=== PATIENT | male | born 1980 | race Caucasian/White ===

== ENCOUNTER 2024-05-09 10:52 | Emergency (ER) | payer BC, SELFPAY ==
--- NOTE | 2024-05-09 10:51 | ECG_ITS ---
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 Measurements Intervals [place] Rate: 90 P: 39 MA: 140 QRS: 22 QRSD: 92 T: 37 QT: 367 QTc: 449 Interpretive Statements SINUS RHYTHM No previous ECG available for comparison Electronically Signed On 05-09-2024 12:01:00 CDT by Guillermo Zayas M.D. [id number]
--- NOTE | 2024-05-09 11:12 | XR_ITS ---
WS: [id number] Portable AP upright chest, 05/09/2024 Clinical Data: chest pain Comparison: None. Findings: No nodules, masses or effusions are seen. The heart is normal. The pulmonary vascularity is not increased. No pneumonia or pneumothorax is seen. There are monitor leads on the chest wall. XR/XR chest 1V portable [id number] Impression: Negative chest.
[2024-05-09 11:13] VITALS: BP 171/99; PULSE 82; RESP 16; TEMP 36.7; O2SAT 97; BMI 32.1
[2024-05-09 11:22] LABS: Basophils % 0.6 %; Eosinophils # 0.1 10^3/uL (0.0-0.8); Eosinophils % 1.5 %; Hematocrit 44.7 % (37-53); Lymphocytes # 2.8 10^3/uL (0.8-4.8); Lymphocytes % 42.3 %; Mean Corpuscular Hemoglobin 30.8 pg (27-33); Mean Corpuscular Volume 90.5 fl (82-101); Mean Platelet Volume 8.9 fL (7.4-10.4); Monocytes # 0.9 10^3/uL (0.2-0.9); Monocytes % 13.3 %; Nucleated Red Blood Cells % 0 %; Platelet Count 269 10^3/cmm (157-399); Red Blood Count 4.94 10^6/uL (3.85-5.65); Red Cell Distribution Width 12.5 % (12.1-15.1); White Blood Count 6.67 10^3/uL (3.29-11.43)
--- NOTE | 2024-05-09 11:28 | ED_ITS ---
HPI - Chest Pain 2 General: Chief Complaint: Chest Pain Stated Complaint: Chest pain, SOB Time Seen by Provider: 05/09/24 11:12 History of Present Illness: 43-year-old male presents emergency room complaint intermittent chest pain began this morning when he first woke up. He has not noticed anything exacerbates or relieves it he has no history of coronary artery disease no history of arrhythmias. No associated shortness of breath or productive cough no fever sweats or chills. He can wax and wane this morning he did not really notice anything that exacerbated or relieved. He is not having any chest discomfort at this time. Pain is not reproducible with deep inspiration or palpation. Associated symptoms: Deny abdominal pain, dyspnea or fever(s) Review of Systems 2 Const: Denies: fever(s) or chills Card: Reports: chest pain Resp: Denies: dyspnea GI: Denies: abdominal pain : Denies: dysuria, urinary frequency or urinary urgency Musc: Denies: neck pain or back pain Skin/Breast: Denies: rash Physical Exam 2 Const: GENERAL APPEARANCE: cooperative and comfortable O RIENTATION/CONSCIOUSNESS: Yes awake, Yes oriented to person, Yes oriented to place and Yes oriented to time HENMT: COMMON NORMALS: normocephalic, atraumatic and hearing grossly normal bilaterally HEAD & SCALP: normocephalic and atraumatic Resp: COMMON NORMALS: normal respiratory effort, No retractions, No use of accessory muscles and clear to auscultation bilaterally AUSCULTATION: clear to auscultation bilaterally Cardio: COMMON NORMALS: regular rate, regular rhythm and No murmurs present (Cardio) RATE: regular rate RHYTHM: regular rhythm GI: COMMON NORMALS: Soft to palpation and No hepatosplenomegaly present A USCULTATION: Yes normoactive bowel sounds PALPATION: Yes Soft to palpation, No Tenderness to palpation present (GI), No Guarding due to palpation present (GI) and Yes No hepatosplenomegaly present Extremity: COMMON NORMALS: normal to inspection, capillary refill normal, no clubbing, cyanosis or edema, no calf tenderness and no pedal edema Neuro: SENSORIUM/ORIENTATION: Yes oriented to person, Yes oriented to place and Yes oriented to time Skin: COMMON NORMALS: no rashes or lesions noted GENERAL SKIN EXAM: no rashes or lesions noted Course 2 Vital Signs: Vital signs: Vital Signs Temperature 98.0 F 05/09/24 11:13 Pulse Rate 83 05/09/24 13:19 Respiratory Rate 16 05/09/24 11:47 Blood Pressure 142/92 05/09/24 13:19 Pulse Oximetry 98 05/09/24 13:19 Oxygen Delivery Me thod Room Air 05/09/24 13:19 MDM - Chest Pain Medical Decision Making First EKG shows normal sinus rhythm with a normal rate no acute ST changes second EKG shows a rate of 72 with a normal [place] interval no acute ST changes. Cardiac enzymes are negative. Will discharge patient home set him up for outpatient graded exercise stress test encourage patient take aspirin daily continue his other medications. Lab Data 05/09/24 11:06 05/09/24 11:06 Radiology Impressions Chest X-Ray 05/09/24 11:12 Impression: Negative chest. Laboratory Results WBC 6.67 10^3/uL (3.29-11.43) 05/09/24 11:06 RBC 4.94 10^6/uL (3.85-5.65) 05/09/24 11:06 Hgb 15.20 g/dL (11.27-16.99) 05/09/24 11:06 Hct 44.7 % (37-53) 05/09/24 11:06 MCV 90.5 fl (82-101) 05/09/24 11:06 MCH 30.8 pg (27-33) 05/09/24 11:06 MCHC 34.0 g/dL (30-55) 05/09/24 11:06 RDW 12.5 % (12.1-15.1) 05/09/24 11:06 Plt Count 269 10^3/cmm (157-399) 05/09/24 11:06 MPV 8.9 fL (7.4-10.4) 05/09/24 11:06 Neut % (Auto) 42.0 % 05/09/24 11:06 Lymph % (Auto) 42.3 % 05/09/24 11:06 [place] % (Auto) 13.3 % 05/09/24 11:06 Eos % (Auto) 1.5 % 05/09/24 11:06 Baso % (Auto) 0.6 % 05/09/24 11:06 Neut # (Auto) 2.80 10^3/uL (1.8-7.7) 05/09/24 11:06 Lymph # (Auto) 2.8 10^3/uL (0.8-4.8) 05/09/24 11:06 [place] # (Auto) 0.9 10^3/uL (0.2-0.9) 05/09/24 11:06 Eos # (Auto) 0.1 10^3/uL (0.0-0.8) 05/09/24 11:06 Baso # (Auto) 0.0 10^3/uL (0.0-0.1) 05/09/24 11:06 Nucleated RBC % (auto) 0 % 05/09/24 11:06 Nucleated RBCs # 0.0 /100WBC 05/09/24 11:06 Sodium 141 mmol/L (136-145) 05/09/24 11:06 Potassium 4.1 mmol/L (3.5-5.1) 05/09/24 11:06 Chloride 102 mmol/L (98-107) 05/09/24 11:06 Carbon Dioxide 25 mmol/L (22-29) 05/09/24 11:06 Anion Gap 18.1 (5-19) 05/09/24 11:06 BUN 13 mg/dL (6-20) 05/09/24 11:06 Creatinine 0.8 mg/dL (0.7-1.2) 05/09/24 11:06 GFR Calculation 104.5 mL/min (90-130) 05/09/24 11:06 Glucose 111 mg/dL (65-115) 05/09/24 11:06 Calculated Osmolality 293 mOsm/kg (285-295) 05/09/24 11:06 Calcium 9.5 mg/dL (8.5-10.5) 05/09/24 11:06 Total Bilirubin 0.4 mg/dL (0.15-1.2) 05/09/24 11:06 AST 25 U/L (0-40) 05/09/24 11:06 ALT 41 U/L (0-41) 05/09/24 11:06 Alkaline Phosphatase 86 U/L (40-130) 05/09/24 11:06 Troponin T Baseline < 6 ng/L (0-15) 05/09/24 11:06 Troponin T 120 Minute 6.00 ng/L (0-15) 05/09/24 12:39 Delta Troponin T 0.03116 ABS# (0-10) 05/09/24 12:39 Total Protein 7.5 g/dL (6.6-8.7) 05/09/24 11:06 Albumin 5.0 g/dL (3.5-5.2) 05/09/24 11:06 Globulin 2.5 g/dL (1.3-4.6) 05/09/24 11:06 Lipase 16 U/L (13-60) 05/09/24 11:06 All radiology interpretation(s) finalized by discharge Discharge Plan Discharge Patient Disposition: Home Clinical Impression: Atypical chest pain Condition: Stable Prescriptions: New pantoprazole 40 mg tablet,delayed release (DR/EC) 40 mg PO QAM Qty: 30 0RF No Action lisinopril 20 mg tablet 20 mg PO DAILY Discharge Orders: Discharge ED (Routine); Ordered 05/09/24 Ordered By: Gonzalo Paez Referrals: Bryson Cho MD [Family Provider] - Discharge Diet: Usual diet Discharge Activity: Resume usual activity Patient Instructions: Opioid Safety, Pain Management Activity Restrictions/Additional Instructions: Thank you for choosing [facility] for your healthcare needs today. It is very important that you follow up as instructed or that you return to the Emergency Department should you have concerns or if your condition changes or worsens in any way. You were seen in the emergency room with complaint of chest discomfort. Your cardiac enzymes and EKGs were normal there is no evidence of acute coronary syndrome. Your chest x-ray did not show any signs of pneumonia pneumothorax widening the mediastinum (potential aortic dissection). Your oxygen sats and heart rate were normal there is no sign of pulmonary embolism. We recommend that you start Protonix 40 mg once daily we will set you up for an outpatient cardiac stress test. Follow-up with your primary care doctor Coding Level of Care Code ED Special Education Teacher for Kirsty Herman
[2024-05-09 11:41] LABS: Alanine Aminotransferase 41 U/L (0-41); Alkaline Phosphatase 86 U/L (40-130); Anion Gap 18.1 (5-19); Aspartate Amino Transferase 25 U/L (0-40); Blood Urea Nitrogen 13 mg/dL (6-20); Calcium 9.5 mg/dL (8.5-10.5); Carbon Dioxide 25 mmol/L (22-29); Chloride 102 mmol/L (98-107); Creatinine Clr Calc Pharmacy 143.3418; Globulin 2.5 g/dL (1.3-4.6); Glomerular Filtration Rate 104.5 mL/min (90-130); Glucose 111 mg/dL (65-115); Lipase 16 U/L (13-60); Osmolality Calculated 293 mOsm/kg (285-295); Potassium 4.1 mmol/L (3.5-5.1); Sodium 141 mmol/L (136-145); Total Bilirubin 0.4 mg/dL (0.15-1.2); Total Protein 7.5 g/dL (6.6-8.7); Troponin(5th) Baseline < 6 ng/L (0-15)
[2024-05-09] MEDS: aspirin 81 mg Chew Tablet 324 MG PO (11:45)
[2024-05-09 11:47] VITALS: BP 161/97; PULSE 75; RESP 16; O2SAT 100
--- NOTE | 2024-05-09 12:57 | ECG_ITS ---
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 Measurements Intervals [place] Rate: 72 P: 39 NM: 145 QRS: 11 QRSD: 87 T: 21 QT: 388 QTc: 427 Interpretive Statements SINUS RHYTHM Compared to ECG 05/09/2024 10:51:47 No significant changes Electronically Signed On 05-09-2024 15:35:31 CDT by Guillermo Zayas M.D. [id number]
[2024-05-09 13:03] LABS: Troponin 5 2HR Delta 0.00001 ABS# (0-10)
[2024-05-09 13:19] VITALS: BP 142/92; PULSE 83; O2SAT 98
== END 2024-05-09 14:20 | disposition home or self-care (01) ==
PROVIDERS: Emergency Medicine; Emergency Provider Family Medicine; Family Provider Family Medicine
DX: R07.89 Other chest pain (principal)
CPT/HCPCS: 36415; 71045; 80053; 83690; 84484; 85025; 93005; 99285